=== PATIENT | female | born 1980 | race Native Hawaiian/Other Pacific Islander ===

== ENCOUNTER 2020-06-04 13:15 | Outpatient (CLI) | payer BC, OTHER | END 2020-06-04 21:13 | disposition home or self-care (01) | LOC: INF 13:15 | PROVIDERS: ATTEND Internal Medicine | DX: Z23 Encounter for immunization (principal) | CPT/HCPCS: 96372 ==

== ENCOUNTER 2020-07-03 15:30 | Outpatient (CLI) | payer BC, OTHER | END 2020-07-03 21:05 | disposition home or self-care (01) | LOC: INF 15:30 | PROVIDERS: ATTEND Internal Medicine | DX: Z23 Encounter for immunization (principal) | CPT/HCPCS: 96372 ==